=== PATIENT | female | born 1945 | race Caucasian/White ===

== ENCOUNTER 2020-11-26 17:08 | Emergency (ER) | payer OTHER ==
[~2020-11-26 17:08] MED LIST: ACIDOPHILUS LACT1 GM MC; ALDACTONE25 MG PO; ALEVE220 MG PO; AMIODARONE HCL400 MG PO; AMLODIPINE BESYL5 MG PO; APRISO0.375 GM PO; ASPIRIN EC81 MG PO; BENADRYL 25MG C25 MG PO; BUMETANIDE2 MG PO; CARDIZEM CD120 MG PO; CARTIA XT120 MG PO; CARTIA XT180 MG PO; CARTIA XT240 MG PO; CEFUROXIME250 MG PO; CELLCEPT500 MG PO; CLARITIN10 M2 PO; CLEOCIN HCL300 MG PO; COLCHICINE0.6 MG PO; COSENTYX (150 MG/1 M SQ; COSENTYX P150 MG/11 SQ; COZAAR 50MG TAB50 MG PO; DILTIAZEM 24HR120 M1 PO; DITROPAN 5 MG TA5 MG PO; ELIQUIS 5 MG TAB5 MG PO; ELIQUIS2.5 MG PO; FLOVENT DISKUS50 MCG INH; GAVISCON 80-141 EACH PO; HYDROCHLOROTHIA25 MG PO; K-DUR TAB 20 M20 MEQ PO; LEVAQUIN500 MG PO; LIALDA1.2 GM PO; LIDOPATCH1 EACH TP; LIPITOR TAB 2020 MG PO; MACRODANTIN50 MG PO; NITROSTAT 0.40.4 MG SL; OMNICEF 300 MG300 MG PO; PLAQUENIL 200200 MG PO; PREDNISONE 50 M50 MG PO; PREDNISONE20 MG PO; PROTONIX40 MG PO; SOTALOL80 MG PO; TESSALON PERLE100 MG PO; TOPROL XL 100100 MG PO; TRAZODONE HCL50 MG PO; TYLENOL 500 MG500 MG PO; ULTRAM50 MG PO; VIT B 12 PO; ZANTAC150 MG PO; ZOFRAN4 MG PO
[2020-11-26 18:56] LABS: HEMOGLOBIN 10.9 gm/dl (12.3-15.3); RED BLOOD COUNT 3.8 M/UL (4.00-5.10); WHITE BLOOD COUNT 7.4 K/UL (4.5-11.0)
== END 2020-11-26 23:30 | disposition home or self-care (01) ==
LOC: ER1 17:08
PROVIDERS: Emergency Medicine
DX: K56.609 Unspecified intestinal obstruction, unspecified as to partial versus complete obstruction (principal); N39.0 Urinary tract infection, site not specified; I50.9 Heart failure, unspecified; I13.0 Hypertensive heart and chronic kidney disease with heart failure and stage 1 through stage 4 chronic kidney disease, or unspecified chronic kidney disease; N18.30 Chronic kidney disease, stage 3 unspecified; I48.91 Unspecified atrial fibrillation; Z79.899 Other long term (current) drug therapy
CPT/HCPCS: 80053; 81001; 83735; 84100; 85025; 85610; 85730; 96365; 96375; 99285; J0696; J1170; J2405

== ENCOUNTER 2021-06-26 18:30 | Inpatient (IN) | payer OTHER ==
[~2021-06-26] VITALS: Ht 162.6 cm; Wt 102.5 kg
[~2021-06-26 18:30] MED LIST changes: +DIFLUCAN200 MG PO
[2021-06-26 18:57] LABS: HEMOGLOBIN 11.3 gm/dl (12.3-15.3); RED BLOOD COUNT 3.79 M/UL (4.00-5.10); WHITE BLOOD COUNT 13.9 K/UL (4.5-11.0)
[2021-06-26 19:24] LABS: BUN/CREATININE RATIO 19 (0-10)
[2021-06-26] MEDS ORDERED: SODIUM BICARBO650 MG PO (23:12)
[2021-06-26] MEDS ORDERED: STELARA45 MG/0.5 INJ (23:14)
[2021-06-26] MEDS ORDERED: SULFASALAZINE500 MG PO (23:14)
[2021-06-26] MEDS ORDERED: DILTIAZEM 24HR120 M1 PO (23:16)
[2021-06-26] MEDS ORDERED: BACTRIM DS TAB1 EACH PO (23:17)
[2021-06-26] MEDS ORDERED: MACROBID 100 M100 M1 PO (23:17)
[2021-06-26] MEDS ORDERED: LOTRISONE CREAM15 GM TP (23:18)
[2021-06-27 07:11] LABS: RED BLOOD COUNT 3.68 M/UL (4.00-5.10)
[2021-06-27] MEDS ORDERED: NYSTATIN60 GM TP (23:18)
[2021-06-28 07:01] LABS: HEMOGLOBIN 10.4 gm/dl (12.3-15.3); RED BLOOD COUNT 3.52 M/UL (4.00-5.10)
[2021-06-28 07:06] LABS: WHITE BLOOD COUNT 13.7 K/UL (4.5-11.0)
[2021-06-29 07:04] LABS: HEMOGLOBIN 11.8 gm/dl (12.3-15.3); WHITE BLOOD COUNT 10.6 K/UL (4.5-11.0)
[2021-06-29 07:21] LABS: RED BLOOD COUNT 4.02 M/UL (4.00-5.10)
--- NOTE | 2021-06-29 09:57 | NUR ---
CANISTER EMPTIED WITH 1200CC GREENISH BILE. THIS AMOUNT WAS FROM PLACEMENT OF NG TUBE YESTERDAY ON 06/28/21 AT 1200 TO TODAY 06/29/21 AT 0900.
--- NOTE | 2021-06-29 10:00 | NUR ---
YEUNG CATH REMAINING IN PLACE DUE TO PTS CONDITION AND TO MAINTAIN SKIN INTEGRITY.
[2021-06-29 11:14] LABS: CREATININE, URINE 22.6 mg/dL (Not Estab.)
[2021-06-29 12:14] LABS: ANTI-DSDNA ANTIBODIES <1 IU/mL (0-9); ANTICHROMATIN ANTIBODIES 0.6 AI (0.0-0.9); COMPLEMENT C3, SERUM 179 mg/dL (82-167); COMPLEMENT C4, SERUM 25 mg/dL (12-38)
[2021-06-29 16:15] LABS: ATYPICAL PANCA <1:20 titer (Neg:<1:20); CYTOPLASMIC (C-ANCA) <1:20 titer (Neg:<1:20); PERINUCLEAR (P-ANCA) <1:20 titer (Neg:<1:20)
[2021-06-29 19:08] LABS: HOMOGENEOUS PATTERN >1:1280 (.)
[2021-06-30 06:15] LABS: HEMOGLOBIN 11.6 gm/dl (12.3-15.3); RED BLOOD COUNT 3.94 M/UL (4.00-5.10); WHITE BLOOD COUNT 10.7 K/UL (4.5-11.0)
--- NOTE | 2021-06-30 17:41 | NUR ---
PT HAS ROOM ASSIGNED TO ICU ROOM 2117. REPORT CALLED TO ICU NURSE LLOYD DUENAS, PT IS STABLE AND STILL AWAITING SURGERY. SURGERY STATES WILL BE A LATE SURGERY THIS EVENING.
[2021-07-01 08:13] LABS: FUNGITELL, SERUM <31 pg/mL (<80)
[2021-07-01 08:31] LABS: HEMOGLOBIN 10.4 gm/dl (12.3-15.3); RED BLOOD COUNT 3.63 M/UL (4.00-5.10); WHITE BLOOD COUNT 9.4 K/UL (4.5-11.0)
[2021-07-01 13:53] LABS: HEMOGLOBIN 11.3 gm/dl (12.3-15.3); RED BLOOD COUNT 3.82 M/UL (4.00-5.10); WHITE BLOOD COUNT 13.3 K/UL (4.5-11.0)
[2021-07-02 04:23] LABS: HEMOGLOBIN 11.6 gm/dl (12.3-15.3); RED BLOOD COUNT 3.91 M/UL (4.00-5.10); WHITE BLOOD COUNT 13.3 K/UL (4.5-11.0)
[2021-07-05 07:04] LABS: HEMOGLOBIN 10.6 gm/dl (12.3-15.3); RED BLOOD COUNT 3.65 M/UL (4.00-5.10); WHITE BLOOD COUNT 9.8 K/UL (4.5-11.0)
[2021-07-06 07:00] LABS: HEMOGLOBIN 11.3 gm/dl (12.3-15.3); RED BLOOD COUNT 3.86 M/UL (4.00-5.10)
[2021-07-06 07:01] LABS: WHITE BLOOD COUNT 12.4 K/UL (4.5-11.0)
[2021-07-08 06:45] LABS: HEMOGLOBIN 10.2 gm/dl (12.3-15.3); RED BLOOD COUNT 3.48 M/UL (4.00-5.10); WHITE BLOOD COUNT 12.3 K/UL (4.5-11.0)
[2021-07-10 06:26] LABS: HEMOGLOBIN 9.5 gm/dl (12.3-15.3); RED BLOOD COUNT 3.22 M/UL (4.00-5.10); WHITE BLOOD COUNT 11.4 K/UL (4.5-11.0)
[2021-07-11 06:26] LABS: HEMOGLOBIN 9.5 gm/dl (12.3-15.3); RED BLOOD COUNT 3.29 M/UL (4.00-5.10); WHITE BLOOD COUNT 10.5 K/UL (4.5-11.0)
[2021-07-11] MEDS ORDERED: ELIQUIS 5 MG TAB5 MG PO (13:42)
[2021-07-11] MEDS ORDERED: HYDROCODON-ACE1 EAC4 PO (13:45)
[2021-07-11] MEDS ORDERED: CARDIZEM 30MG T30 MG PO (13:45)
--- NOTE | 2021-07-12 12:38 | NUR ---
REPORT CALLED TO YULISSA ARREDONDO AT [facility].
== END 2021-07-12 12:50 | disposition home health service (06) | DRG 264 ==
LOC: ER1 18:30 → M/S 20:28 → MED SURG 4 20:28 → CDU 20:28 → MED SURG 4 22:21 → CCU 06-30 18:04 → M/S 07-03 18:28
PROVIDERS: Emergency Medicine; Internal Medicine; Internal Medicine Nephrology; Internal Medicine Pulmonary Disease; Surgery; ADMIT Internal Medicine
PROC: 5A09457 Assistance with Respiratory Ventilation, 24-96 Consecutive Hours, Continuous Positive Airway Pressure (ICD-10-PCS; 2021-06-27)
PROC: 0DB80ZZ Excision of Small Intestine, Open Approach (ICD-10-PCS; 2021-06-30)
PROC: 0DW807Z Revision of Autologous Tissue Substitute in Small Intestine, Open Approach (ICD-10-PCS; 2021-06-30)
PROC: 0DH67UZ Insertion of Feeding Device into Stomach, Via Natural or Artificial Opening (ICD-10-PCS; principal; 2021-07-09)
DX: I13.0 Hypertensive heart and chronic kidney disease with heart failure and stage 1 through stage 4 chronic kidney disease, or unspecified chronic kidney disease (principal); J15.9 Unspecified bacterial pneumonia; I50.43 Acute on chronic combined systolic (congestive) and diastolic (congestive) heart failure; J96.01 Acute respiratory failure with hypoxia; K43.3 Parastomal hernia with obstruction, without gangrene; J44.0 Chronic obstructive pulmonary disease with (acute) lower respiratory infection; E66.2 Morbid (severe) obesity with alveolar hypoventilation; E87.2 Acidosis; I16.1 Hypertensive emergency; K51.90 Ulcerative colitis, unspecified, without complications; N18.4 Chronic kidney disease, stage 4 (severe); E87.1 Hypo-osmolality and hyponatremia; K56.7 Ileus, unspecified; I42.9 Cardiomyopathy, unspecified; I16.0 Hypertensive urgency; M19.90 Unspecified osteoarthritis, unspecified site; D63.1 Anemia in chronic kidney disease; E78.5 Hyperlipidemia, unspecified; K74.60 Unspecified cirrhosis of liver; I27.20 Pulmonary hypertension, unspecified; I48.91 Unspecified atrial fibrillation; I83.009 Varicose veins of unspecified lower extremity with ulcer of unspecified site; M10.9 Gout, unspecified; I44.7 Left bundle-branch block, unspecified; E87.6 Hypokalemia; E87.5 Hyperkalemia; I08.3 Combined rheumatic disorders of mitral, aortic and tricuspid valves; Z79.01 Long term (current) use of anticoagulants; Z68.38 Body mass index [BMI] 38.0-38.9, adult; Z99.3 Dependence on wheelchair; Z93.3 Colostomy status; Z93.2 Ileostomy status; Z90.49 Acquired absence of other specified parts of digestive tract; Z90.710 Acquired absence of both cervix and uterus; Z88.0 Allergy status to penicillin; Z88.1 Allergy status to other antibiotic agents; Z88.8 Allergy status to other drugs, medicaments and biological substances; Z86.16 Personal history of COVID-19
CPT/HCPCS: ECHO; 36415; 36600; 71045; 74018; 74019; 74150; 80048; 80053; 81001; 82043; 82436; 82550; 82553; 82570; 82728; 82803; 83540; 83550; 83605; 83615; 83735; 83874; 83880; 84100; 84133; 84300; 84484; 85025; 85027; 85384; 85652; 86038; 86140; 86160; 86225; 86256; 87040; 93005; 93306; 94002; 94003; 94640; 94660; 94664; 94760; 96374; 96375; 97110-GP-CQ; 97162; 97166; 97530; 97530-GP-CQ; 97535; 99285; C9113; J1650; J1940; J1956; J2001; J2250; J2270; J2405; J2550; J2704; J2710; J2930; J3010; J7030; J7120; U0002

== ENCOUNTER 2021-10-20 10:58 | Inpatient (IN) | payer MEDICARE ==
[~2021-10-20] VITALS: Ht 162.6 cm; Wt 117.5 kg
[~2021-10-20 10:58] MED LIST changes: +BACTRIM DS TAB1 EACH PO; +CARDIZEM 30MG T30 MG PO; +HYDROCODON-ACE1 EAC4 PO; +LOTRISONE CREAM15 GM TP; +MACROBID 100 M100 M1 PO; +NYSTATIN60 GM TP; +STELARA45 MG/0.5 INJ; +SULFASALAZINE500 MG PO
[2021-10-20 12:27] LABS: HEMOGLOBIN 10.3 gm/dl (12.3-15.3); RED BLOOD COUNT 3.62 M/UL (4.00-5.10); WHITE BLOOD COUNT 9.2 K/UL (4.5-11.0)
[2021-10-20] MEDS ORDERED: ELIQUIS2.5 MG PO (12:56)
[2021-10-20] MEDS ORDERED: DILTIAZEM 24HR120 M1 PO (12:57)
[2021-10-20] MEDS ORDERED: GEMTESA75 MG PO (12:59)
[2021-10-20] MEDS ORDERED: PROVENTIL HFA6.7 GM INH (13:00)
[2021-10-20] MEDS ORDERED: DRISDOL1250 MCG PO (13:01)
[2021-10-20] MEDS ORDERED: SODIUM BICARBO650 MG PO (23:12)
[2021-10-21 02:48] LABS: HEMOGLOBIN 8.9 gm/dl (12.3-15.3); RED BLOOD COUNT 3.21 M/UL (4.00-5.10); WHITE BLOOD COUNT 6.4 K/UL (4.5-11.0)
[2021-10-22 02:41] LABS: HEMOGLOBIN 9.2 gm/dl (12.3-15.3); RED BLOOD COUNT 3.27 M/UL (4.00-5.10)
[2021-10-22 02:54] LABS: WHITE BLOOD COUNT 9.9 K/UL (4.5-11.0)
[2021-10-22] MEDS ORDERED: ASPIRIN EC81 MG PO (17:20)
[2021-10-22] MEDS ORDERED: BUMETANIDE1 MG PO (17:20)
[2021-10-22] MEDS ORDERED: LOPRESSOR 25 MG25 MG PO (17:20)
[2021-10-23 02:52] LABS: HEMOGLOBIN 9.3 gm/dl (12.3-15.3); RED BLOOD COUNT 3.31 M/UL (4.00-5.10); WHITE BLOOD COUNT 9.1 K/UL (4.5-11.0)
--- NOTE | 2021-10-23 10:01 | NUR ---
PTS ROOM AIR OXYGENATION IS 87%, NOTIFIED WITH NEW ORDER NOTED
== END 2021-10-23 15:55 | disposition home or self-care (01) | DRG 291 ==
LOC: PROG CARE 11:10
PROVIDERS: Internal Medicine Nephrology; ADMIT Internal Medicine
PROC: 5A0945A Assistance with Respiratory Ventilation, 24-96 Consecutive Hours, High Flow/Velocity Cannula (ICD-10-PCS; 2021-10-20)
PROC: B24BZZZ Ultrasonography of Heart with Aorta (ICD-10-PCS; principal; 2021-10-22)
DX: I13.0 Hypertensive heart and chronic kidney disease with heart failure and stage 1 through stage 4 chronic kidney disease, or unspecified chronic kidney disease (principal); I50.33 Acute on chronic diastolic (congestive) heart failure; J96.01 Acute respiratory failure with hypoxia; N17.9 Acute kidney failure, unspecified; I48.21 Permanent atrial fibrillation; Z20.822 Contact with and (suspected) exposure to COVID-19; I44.7 Left bundle-branch block, unspecified; N18.30 Chronic kidney disease, stage 3 unspecified; E78.5 Hyperlipidemia, unspecified; E11.22 Type 2 diabetes mellitus with diabetic chronic kidney disease; E66.01 Morbid (severe) obesity due to excess calories; I42.9 Cardiomyopathy, unspecified; E83.42 Hypomagnesemia; K74.60 Unspecified cirrhosis of liver; I87.2 Venous insufficiency (chronic) (peripheral); Z79.82 Long term (current) use of aspirin; Z93.3 Colostomy status; Z79.01 Long term (current) use of anticoagulants; Z90.89 Acquired absence of other organs; Z90.710 Acquired absence of both cervix and uterus; Z98.890 Other specified postprocedural states; Z90.49 Acquired absence of other specified parts of digestive tract; Z88.0 Allergy status to penicillin; Z88.8 Allergy status to other drugs, medicaments and biological substances; Z99.3 Dependence on wheelchair; Z82.49 Family history of ischemic heart disease and other diseases of the circulatory system; Z68.38 Body mass index [BMI] 38.0-38.9, adult
CPT/HCPCS: ECHO; 36415; 71045; 80048; 80053; 80061; 81001; 82550; 82553; 82570; 82607; 83036; 83540; 83550; 83605; 83735; 83880; 84133; 84156; 84300; 84439; 84443; 84484; 85025; 85027; 85610; 85652; 86140; 87040; 87086; 93005; 93306; 94640; 94664; 94760; 97116; 97161; 97166; 97530-GP-CQ; 97535; J1940; J2185; J3475; J7030; Q0177; U0002

== ENCOUNTER → 2021-12-18 | Outpatient (CLI) | payer OTHER ==
[~2021-12-18] MED LIST changes: +BUMETANIDE1 MG PO; +DRISDOL1250 MCG PO; +GEMTESA75 MG PO; +LOPRESSOR 25 MG25 MG PO; +PROVENTIL HFA6.7 GM INH; +SODIUM BICARBO650 MG PO
== END ==
LOC: HEART 5 09:26
DX: J44.9 Chronic obstructive pulmonary disease, unspecified (principal)
CPT/HCPCS: 71046; 82803; 94010; 94729

== ENCOUNTER → 2021-12-28 | Outpatient (CLI) | payer OTHER | LOC: HEART 5 11-16 07:45 | DX: I34.0 Nonrheumatic mitral (valve) insufficiency (principal); I48.91 Unspecified atrial fibrillation; I50.9 Heart failure, unspecified | CPT/HCPCS: 78452; A9502; J2785 ==

== ENCOUNTER 2022-02-12 17:37 | Inpatient (IN) | payer OTHER ==
[~2022-02-12] VITALS: Ht 162.6 cm; Wt 108.9 kg
[2022-02-12 18:35] LABS: HEMOGLOBIN 12.6 gm/dl (12.3-15.3); RED BLOOD COUNT 4.3 M/UL (4.00-5.10); WHITE BLOOD COUNT 8.9 K/UL (4.5-11.0)
[2022-02-12 19:20] LABS: ADENOVIRUS F 40/41 Not Detected (Negative); ASTROVIRUS Not Detected (Negative); CAMPYLOBACTER Not Detected (Negative); CRYPTOSPORIDIUM Not Detected (Negative); E.COLI 0157 Not Detected (Negative); ENTAMOEBA HISTOLYTICA Not Detected (Negative); ENTEROAGGREGATIVE E.COLI (EAEC Not Detected (Negative); ENTEROPATHOGENIC E.COLI (EPEC) Not Detected (Negative); ENTEROTOXIGENIC E.COLI (ETEC) Not Detected (Negative); GIARDIA LAMBLIA Not Detected (Negative); NOROVIRUS GI/GII Not Detected (Negative); PLESIOMONAS SHIGELLOIDES Not Detected (Negative); ROTOVIRUS A Not Detected (Negative); SALMONELLA Not Detected (Negative); SAPOVIRUS Not Detected (Negative); SHIG/ENTEROINVAS.ECOLI (EIEC) Not Detected (Negative); SHIGA-LIK TOX.PRO.E.COLI (STEC Not Detected (Negative); VIBRIO Not Detected (Negative); VIBRIO CHOLERAE Not Detected (Negative); YERSINIA ENTEROCOLITICA Not Detected (Negative)
[2022-02-12] MEDS ORDERED: METOPROLOL SUCC50 MG PO (22:47)
[2022-02-13 04:12] LABS: HEMOGLOBIN 10.7 gm/dl (12.3-15.3)
[2022-02-13 04:18] LABS: RED BLOOD COUNT 3.77 M/UL (4.00-5.10); WHITE BLOOD COUNT 6.1 K/UL (4.5-11.0)
[2022-02-13 08:25] LABS: CLOSTRIDIUM DIFFICILE TOX A/B Not Detected (Negative)
[2022-02-13 09:30] LABS: HEMOGLOBIN 12.1 gm/dl (12.3-15.3)
[2022-02-13 09:31] LABS: RED BLOOD COUNT 4.25 M/UL (4.00-5.10); WHITE BLOOD COUNT 7.7 K/UL (4.5-11.0)
[2022-02-13] MEDS ORDERED: HYDROXYCHLOROQ200 MG PO (11:03)
[2022-02-13] MEDS ORDERED: SODIUM BICARBO650 MG PO (11:03)
[2022-02-14 06:27] LABS: RED BLOOD COUNT 3.9 M/UL (4.00-5.10)
[2022-02-14 13:16] LABS: BUN/CREATININE RATIO 19 (0-10)
[2022-02-16] MEDS ORDERED: LOPRESSOR 25 MG25 MG PO (11:56)
== END 2022-02-16 17:00 | disposition home health service (06) | DRG 683 ==
LOC: ER1 17:37 → MED SURG 4 21:41 → CDU 21:41 → MED SURG 4 22:27
PROVIDERS: Internal Medicine; Internal Medicine Nephrology; Nurse Practitioner; Physician Assistant Medical; ADMIT Internal Medicine
DX: N17.9 Acute kidney failure, unspecified (principal); Z20.822 Contact with and (suspected) exposure to COVID-19; I13.0 Hypertensive heart and chronic kidney disease with heart failure and stage 1 through stage 4 chronic kidney disease, or unspecified chronic kidney disease; E87.1 Hypo-osmolality and hyponatremia; K51.90 Ulcerative colitis, unspecified, without complications; N30.00 Acute cystitis without hematuria; E87.2 Acidosis; I50.32 Chronic diastolic (congestive) heart failure; Z68.41 Body mass index [BMI] 40.0-44.9, adult; I48.0 Paroxysmal atrial fibrillation; E78.5 Hyperlipidemia, unspecified; K74.60 Unspecified cirrhosis of liver; I44.7 Left bundle-branch block, unspecified; N18.30 Chronic kidney disease, stage 3 unspecified; N28.1 Cyst of kidney, acquired; B96.4 Proteus (mirabilis) (morganii) as the cause of diseases classified elsewhere; I87.8 Other specified disorders of veins; E66.9 Obesity, unspecified; E83.51 Hypocalcemia; E87.6 Hypokalemia; E83.42 Hypomagnesemia; D63.1 Anemia in chronic kidney disease; I45.81 Long QT syndrome; E86.0 Dehydration; Z79.01 Long term (current) use of anticoagulants; Z90.49 Acquired absence of other specified parts of digestive tract; Z90.710 Acquired absence of both cervix and uterus; Z88.0 Allergy status to penicillin; Z88.8 Allergy status to other drugs, medicaments and biological substances; Z93.2 Ileostomy status
CPT/HCPCS: 36415; 80048; 80053; 81001; 82550; 82553; 82570; 82652; 83605; 83690; 83735; 83970; 84100; 84133; 84156; 84300; 84484; 85025; 85027; 87077; 87086; 87186; 87507; 92610; 93005; 96374; 96375; 96376; 97110-GP-CQ; 97161; 97166; 97530-GP-CQ; 99285; G0378; G0480; J0696; J1335; J2405; J3475; P9047